=== PATIENT | female | born 1995 ===

== ENCOUNTER 2022-02-22 10:39 | Outpatient (CLI) | payer OTHER | END 2022-02-22 11:00 | disposition home or self-care (01) | LOC: SONOGRAMA 10:39 | PROVIDERS: ATTEND General Practice | DX: R10.9 Unspecified abdominal pain (principal); E78.2 Mixed hyperlipidemia; Z11.1 Encounter for screening for respiratory tuberculosis; Z11.3 Encounter for screening for infections with a predominantly sexual mode of transmission; Z11.2 Encounter for screening for other bacterial diseases; R05.9 Cough, unspecified ==